=== PATIENT | male | born 1960 | race Caucasian/White ===

== ENCOUNTER 2020-07-28 05:20 | Inpatient (IN) ==
[2020-07-28] MEDS ORDERED: fentaNYL 100 MCG/2 ML VIAL ONE ×3 (06:12→10:02)
[2020-07-28] MEDS ORDERED: MIDAZOLAM 2 MG/2 ML VIAL ONE (06:13)
[2020-07-28] MEDS ORDERED: LIDOCAINE 2% 5 ML VIAL ONE (06:14)
[2020-07-28] MEDS ORDERED: ROCURONIUM 50 MG/5 ML VIAL IV ONE ×2 (06:14→08:35)
[2020-07-28] MEDS ORDERED: propofoL 200 MG/20 ML VIAL IV ONE (06:14)
[2020-07-28] MEDS ORDERED: DIAZEPAM 5 MG TABLET PO ONE (06:28)
[2020-07-28] MEDS ORDERED: ALVIMOPAN 12 MG CAPSULE PO ONE (06:30)
[2020-07-28] MEDS ORDERED: LEVOFLOXACIN INJ 500 MG in PREMIX 1 EACH IV ONE (06:30)
[2020-07-28] MEDS ORDERED: LACTATED RINGERS 1,000 ML IV SCH (06:30)
[2020-07-28] MEDS ORDERED: LABETALOL 20 MG/4 ML SYRINGE IV ONE (08:08)
[2020-07-28] MEDS ORDERED: LACTATED RINGERS 1,000 ML IV ONE (08:08)
[2020-07-28] MEDS ORDERED: NEOSTIGMINE 10 MG/10 ML VIAL ONE ×3 (09:18)
[2020-07-28] MEDS ORDERED: ONDANSETRON 4 MG/2 ML VIAL ONE (09:18)
[2020-07-28] MEDS ORDERED: GLYCOPYRROLATE 0.4 MG/2 ML VIAL ONE (09:18)
[2020-07-28 09:28] LABS: Bilirubin,Urine Negative (Negative); Blood, Urine Negative (Negative); Glucose,Urine (UA) Negative (Negative); Ketones,Urine Negative (Negative); Mucus,Urine Occasional /LPF (Occasional); Nitrite,Urine Negative (Negative); Protein,Urine Negative; RBC,Urine 3 /HPF (0-4); Urine Appearance CLEAR (Clear); Urine Color Yellow (Yellow); Urine Specific Gravity 1.019 (1.001-1.035); Urine Urobilinogen < 2.0 EU/DL (0.2-1.0); WBC,Urine 1 /HPF (0-6)
[2020-07-28] MEDS ORDERED: NALOXONE 0.4 MG/ML VIAL IV PRN (09:43)
[2020-07-28] MEDS ORDERED: ONDANSETRON 4 MG/2 ML VIAL IV PRN ×2 (09:43→10:37)
[2020-07-28] MEDS ORDERED: ALBUTEROL INHALER 18 GM INH ONE (09:56)
[2020-07-28] MEDS ORDERED: HYDROmorphone PCA 30 MG/30 ML SYRINGE IV SCH (10:00)
[2020-07-28] MEDS: HYDROmorphone 2 MG/1 ML VIAL IV PRN ×4 (10:35→10:55)
[2020-07-28] MEDS ORDERED: MEPERIDINE 25 MG/1 ML VIAL IV PRN (10:37)
[2020-07-28] MEDS: SODIUM CHLORIDE 0.9% 1,000 ML IV SCH (18:38)
[2020-07-29] MEDS: SODIUM CHLORIDE 0.9% 1,000 ML IV SCH (04:24)
[2020-07-29 05:18] LABS: Basophils % 0.1 % (0.0-0.8); Hematocrit 39.2 VOL% (42.0-52.0); Hemoglobin 13.3 GM/DL (14.0-18.0); Immature Granulocytes % 0.8 %; Immature Granulocytes Absolute 0.12 #; Lymphocytes % 13.2 % (21.2-54.2); Mean Corpuscular HGB Conc 33.9 GM/DL (32-36); Mean Corpuscular Volume 95.8 FL (87-102); Mean Platelet Volume 8.6 FL (9.6-12.0); Monocytes % 9.1 % (1.7-12.7); Neutrophils % 76.8 % (38.7-73.9); Platelet Count 256 T/CUMM (130-400); Red Blood Count 4.09 MC/CUMM (3.8-5.5); Red Cell Distribution Width 12.9 % (9.3-17.3); White Blood Count 15.2 T/CUMM (4-12)
[2020-07-29 05:32] LABS: Calcium 8.4 MG/DL (8.5-10.1); Osmolality,Calculated 274.1 MOS/KG (273-304)
[2020-07-29] MEDS ORDERED: oxyCODONE/ACETAMINOPHEN 5-325 MG TABLET PO PRN ×2 (07:09)
[2020-07-29 07:34] VITALS: BP 143/81
[2020-07-29] MEDS ORDERED: PANTOPRAZOLE 40 MG VIAL IV SCH (09:00)
[2020-07-29] MEDS ORDERED: lisinopriL 10 MG TABLET PO SCH (09:00)
[2020-07-29] MEDS ORDERED: MULTIVITAMIN (CENTRUM) TABLET PO SCH (09:00)
== END 2020-07-29 11:11 | disposition home or self-care (01) | DRG 658 ==
LOC: N.OR 05:20 → N.SDSINP 05:23 → N.3E 11:42
PROVIDERS: ADMIT Urology; ATTEND Urology